=== PATIENT | male | born 1950 | race Caucasian/White ===

== ENCOUNTER 2023-12-19 07:37 | Day surgery (SDC) | payer OTHER ==
[2023-12-18 08:53] LABS: BASOPHILS # (AUTO) 0.06 K/uL (0.00-0.20); BASOPHILS % (AUTO) 1.3 % (0.0-5.0); EOSINOPHILS # (AUTO) 0.17 K/uL (0.00-0.70); EOSINOPHILS % (AUTO) 3.6 % (0.0-8.0); HEMATOCRIT 38.6 % (42-54); IMMATURE GRANULOCYTE ABSOLUTE 0.03 K/uL (0-1); LYMPHOCYTES # (AUTO) 1.1 K/uL (1.0-4.8); MEAN CORPUSCULAR HEMOGLOBIN 34.7 pg (27.0-33.0); MEAN CORPUSCULAR HGB CONC 33.9 g/dL (32.0-36.0); MEAN CORPUSCULAR VOLUME 102.4 fL (79-99); MONOCYTES # (AUTO) 0.5 K/uL (0.1-1.0); MONOCYTES % (AUTO) 9.5 % (3.0-13.0); NEUTROPHILS # (AUTO) 2.9 K/uL (1.8-7.7); PLATELET COUNT (AUTO) 187 K/uL (130-400); RED BLOOD CELL COUNT(AUTO) 3.77 MIL/uL (4.50-6.20); RED CELL DISTRIBUTION WIDTH 12.7 % (11.0-15.5); WHITE BLOOD COUNT (AUTO) 4.7 K/uL (4.8-10.8)
[2023-12-18 08:58] VITALS: BP 165/79; PULSE 57; RESP 16
[2023-12-18 09:13] LABS: CREATININE 1.1 mg/dL (0.5-1.3); INR <= 0.93 (0.85-1.15); POTASSIUM 4.9 mmol/L (3.5-5.1); PROTHROMBIN TIME 10.2 SEC (9.6-11.6)
[2023-12-18 09:14] LABS: PARTIAL THROMBOPLASTIN TIME 25.1 SEC (26.3-35.5)
[2023-12-18 09:21] LABS: APPEARANCE,URINE CLEAR (CLEAR); BILIRUBIN,URINE NEGATIVE (NEGATIVE); COLOR,URINE LIGHT-YELLOW (YELLOW); GLUCOSE, URINE (UA) NEGATIVE (NEGATIVE); KETONES,URINE NEGATIVE (NEGATIVE); LEUKOCYTE ESTERASE ,URINE NEGATIVE Leu/uL (NEGATIVE); NITRATE,URINE NEGATIVE (NEGATIVE); OCCULT BLOOD,URINE NEGATIVE (NEGATIVE); PH,URINE 5.5 (5.0-8.0); PROTEIN,URINE NEGATIVE (NEGATIVE); UROBILINOGEN,URINE 0.2 mg/dL (0.2-1.0)
[2023-12-18 09:33] LABS: ADD UA MICROSCOPIC NO
[2023-12-18 09:35] LABS: B-TYPE NATRIURETIC PEPTIDE 157 pg/mL (0-100)
[~2023-12-19] VITALS: Ht 175.3 cm; Wt 89.7 kg
[2023-12-19] VITALS (13 sets, daily range): BP systolic 139–192; BP diastolic 57–87; PULSE 53–86; RESP 14–20
[~2023-12-19 07:37] MED LIST: ALLO100T PO; ATOR40TA69 PO; ISOS30TA92 PO; LOSA25TA41 PO; METH-811 PO; METO25TA6 PO; NITR0.4T50 SL; OMEP20CA12 PO; TAMS-1 PO; TRAZ-187 PO
[2023-12-19] MEDS ORDERED: LIDOCAINE HCL 400MG/20ML VIAL ONE (09:13)
[2023-12-19] MEDS ORDERED: MEPERIDINE-PF 25 MG/ML SYG ONE ×2 (09:13→09:30)
[2023-12-19] MEDS ORDERED: NITROGLYCERIN 50MG VIAL ONE (09:14)
[2023-12-19] MEDS ORDERED: MIDAZOLAM HCL 1 MG/ML 2ML VIAL ONE ×2 (09:14→09:30)
[2023-12-19] MEDS ORDERED: IOHEXOL 350 MG/ML 100ML INFUS..BTL IV ONE (09:14)
[2023-12-19] MEDS ORDERED: HEPARIN 10,000 UNIT/10ML (1,000 UNIT/ML) VIAL ONE (09:14)
[2023-12-19] MEDS ORDERED: ATROPINE 1MG SYG IVP ONE (09:24)
[2023-12-19] MEDS: 0.9%NACL 1000ML 1,000 ML IV ONE (09:59)
[2023-12-19] MEDS ORDERED: ASPIRIN 325MG EC TAB PO ONE (10:12)
[2023-12-19] MEDS ORDERED: CLOPIDOGREL 300MG TAB ONE (10:12)
[2023-12-19] MEDS ORDERED: 0.9%NACL 1000ML 1,000 ML IV SCH (10:30)
[2023-12-19] MEDS: HYDRALAZINE 20MG/ML VIAL IV PRN (11:00)
[2023-12-19] MEDS ORDERED: CLOP-31 PO (11:35)
[2023-12-19] MEDS ORDERED: ASPI-1197 PO (11:35)
[2023-12-19] MEDS ORDERED: PANT40TA PO (11:35)
== END 2023-12-19 15:20 | disposition home or self-care (01) ==
LOC: DAH 07:37
PROVIDERS: ATTEND Internal Medicine Cardiovascular Disease
DX: I25.119 Atherosclerotic heart disease of native coronary artery with unspecified angina pectoris (principal); T82.856A Stenosis of peripheral vascular stent, initial encounter; I34.0 Nonrheumatic mitral (valve) insufficiency; I77.1 Stricture of artery; M10.9 Gout, unspecified; K44.9 Diaphragmatic hernia without obstruction or gangrene; I10 Essential (primary) hypertension; K21.9 Gastro-esophageal reflux disease without esophagitis; E78.5 Hyperlipidemia, unspecified; Z79.01 Long term (current) use of anticoagulants; Z95.5 Presence of coronary angioplasty implant and graft; Z92.3 Personal history of irradiation; Z87.891 Personal history of nicotine dependence; Z79.899 Other long term (current) drug therapy; Z98.890 Other specified postprocedural states; Y83.8 Other surgical procedures as the cause of abnormal reaction of the patient, or of later complication, without mention of misadventure at the time of the procedure; Y92.89 Other specified places as the place of occurrence of the external cause
CPT/HCPCS: 80048; 83880; 85025; 85610; 85730; 81003; 36415; 71045; 93005; 36225; 93571; 85347; 93306; 93458; C9600; C1887; C1894 ×2; C1725; C1874; C1760; C1769; A4663; J3490 ×2; J7030; J0360; J0461; J1644 ×2; J2250 ×2; J2175 ×2; Q9967; A4215; A4222; A4221; A4216; A4606; Q9965 ×2; A4223 ×3; 36215; 36216; 75710; 99156; 99157

== ENCOUNTER → 2023-12-26 | Outpatient (CLI) | payer OTHER ==
[~2023-12-26] MED LIST changes: +ASPI-1197 PO; +CLOP-31 PO; -OMEP20CA12 PO; +PANT40TA PO
== END | disposition home or self-care (01) ==
LOC: SHCH 14:55
PROVIDERS: ATTEND Internal Medicine Cardiovascular Disease
DX: I70.293 Other atherosclerosis of native arteries of extremities, bilateral legs (principal)
CPT/HCPCS: 93925

== ENCOUNTER → 2024-06-04 | Outpatient (CLI) | payer OTHER ==
[2024-06-04 21:54] VITALS: PULSE 55; RESP 12
[2024-06-04 22:30] VITALS: PULSE 58; RESP 10
[2024-06-04 23:03] VITALS: PULSE 70; RESP 10
[2024-06-04 23:31] VITALS: PULSE 65; RESP 10
[2024-06-04 23:59] VITALS: PULSE 79; RESP 10
[2024-06-05] VITALS (10 sets, daily range): PULSE 56–70; RESP 10–12
== END | disposition home or self-care (01) ==
LOC: SLP 20:35
PROVIDERS: ATTEND Internal Medicine Cardiovascular Disease
DX: G47.33 Obstructive sleep apnea (adult) (pediatric) (principal); I10 Essential (primary) hypertension
CPT/HCPCS: 95810